=== PATIENT | male | born 1990 | race Caucasian/White ===

== ENCOUNTER 2017-04-28 13:05 | Inpatient (IN) | payer MEDICAID, OTHER ==
[~2017-04-28] VITALS: Ht 165.1 cm; Wt 65.5 kg
[2017-04-28] MEDS ORDERED: CEFTRIAXONE 1 GM/50 ML (PMX) 50 ML IVPB ONE (15:00)
[2017-04-28] MEDS ORDERED: VANCOMYCIN 1 GM (PMX) 250 ML IVPB SCH (15:00)
[2017-04-28] MEDS ORDERED: SOD CHLORIDE 0.9% 1,000 ML IV ONE (15:00)
[2017-04-28 15:38] LABS: BASOPHILS % 0.3 % (0.0-2.0); EOSINOPHILS # 0.2 10^3/ul (0.0-0.5); EOSINOPHILS % 2.1 % (0.0-7.0); HEMATOCRIT 43.9 % (42.0-52.0); HEMOGLOBIN 14.7 g/dl (14.0-18.0); LYMPHOCYTES # 1.3 10^3/ul (0.8-2.9); LYMPHOCYTES % 12.4 % (15.0-51.0); MEAN CORPUSCULAR HEMOGLOBIN 30.6 pg (29.0-33.0); MEAN CORPUSCULAR HGB CONC 33.5 g/dl (32.0-37.0); MEAN CORPUSCULAR VOLUME 91.5 fl (82.0-101.0); MONOCYTE # 0.6 10^3/ul (0.3-0.9); MONOCYTES % 5.4 % (0.0-11.0); NEUTROPHIL # 8.5 10^3/ul (1.6-7.5); NEUTROPHILS % 79.6 % (39.0-77.0); PLATELET COUNT 246 10^3/UL (140-415); RED CELL DISTRIBUTION WIDTH 12.8 % (11.5-14.5); WHITE BLOOD COUNT 10.6 10^3/ul (4.8-10.8)
[2017-04-28 15:55] LABS: CREATININE 0.81 mg/dl (0.61-1.24); POTASSIUM 3.3 mmol/L (3.5-5.1)
[2017-04-28] MEDS ORDERED: HYDROCODONE/APAP (5/325) TAB PO ONE (16:30)
[2017-04-28] MEDS ORDERED: POTASSIUM CHLORIDE (SR) 20 MEQ TAB PO STA (17:16)
--- NOTE | 2017-04-28 17:58 | ERD ---
ER Documentation Chief Complaint Chief Complaint FELT SOMETHING BITE HIM YESTERDAY MORNING NOW HAS R SIDE OF FACE SWELLING HPI Patient is a 27-year-old male who presents with gradual onset, constant, progressive pain and swelling to his right face for 3 days. He reports that he had a pimple on his face 3 days ago, and over time his cheek started swelling and became increasingly painful. He reports fever today only. He reports no drainage from his face. He does report having pain and poor dentition in his molars. He denies vomiting. ROS All systems reviewed and are negative except as per history of present illness. Medications Home Meds No Active Prescriptions or Reported Meds Allergies Allergies: Coded Allergies: No Known Allergy (Unverified , 04/28/17) PMhx/Soc Past medical history: None Past surgical history: None Social history: Smokes methamphetamine, denies tobacco or alcohol Medical and Surgical Hx: pt denies Medical Hx, pt denies Surgical Hx Hx Alcohol Use: No Hx Substance Use: No Hx Tobacco Use: No Smoking Status: Never smoker FmHx Family History: No coronary disease, No diabetes Physical Exam Vitals Vital Signs Date Time Temp Pulse Resp B/P Pulse Ox O2 Delivery O2 Flow Rate FiO2 04/28/17 19:38 110 17 134/61 100 Room Air 04/28/17 18:08 100.5 105 17 135/90 100 Room Air 04/28/17 17:09 107 30 150/95 100 Room Air 04/28/17 13:16 100.2 106 18 136/90 98 Physical Exam Const: Alert, appears mildly uncomfortable Head: Atraumatic Eyes: Normal Conjunctiva, No pallor, no icterus ENT: Right cheek with small pustule and extensive erythema and induration. Tender to palpation. No bulla, no signs of necrosis. Poor dentition with caries to upper and lower right-sided molars. No trismus. No sub-lingual or submandibular induration Neck: Full range of motion. No adenopathy Resp: Clear to auscultation bilaterally, No wheezes, no rales Cardio: Mild tachycardia, regular rhythm, no murmurs Abd: Soft, non tender, non distended. Skin: No petechiae or rashes Back: No midline or flank tenderness Ext: No cyanosis, or edema Neur: Awake and alert, Cranial nerves II through XII intact bilaterally, strength and sensation full in 4 extremities. Psych: Normal Mood and Affect Result Diagram: 04/28/17 1520 04/28/17 1520 Results 24 hrs Laboratory Tests Test 04/28/17 15:20 White Blood Count 10.610^3/ul Red Blood Count 4.8010^6/ul Hemoglobin 14.7g/dl Hematocrit 43.9% Mean Corpuscular Volume 91.5fl Mean Corpuscular Hemoglobin 30.6pg Mean Corpuscular Hemoglobin Concent 33.5g/dl Red Cell Distribution Width 12.8% Platelet Count 94025^3/UL Mean Platelet Volume 10.0fl Neutrophils % 79.6% Lymphocytes % 12.4% Monocytes % 5.4% Eosinophils % 2.1% Basophils % 0.3% Nucleated Red Blood Cells % 0.0/100WBC Neutrophils # 8.510^3/ul Lymphocytes # 1.310^3/ul Monocytes # 0.610^3/ul Eosinophils # 0.210^3/ul Basophils # 0.010^3/ul Nucleated Red Blood Cells # 0.010^3/ul Sodium Level 138mmol/L Potassium Level 3.3mmol/L Chloride Level 97mmol/L Carbon Dioxide Level 30mmol/L Anion Gap 14 Blood Urea Nitrogen 17mg/dl Creatinine 0.81mg/dl Glucose Level 108mg/dl Calcium Level 9.0mg/dl Current Medications Medications (Trade) Dose Ordered Sig/Mary Route PRN Reason Start Time Stop Time Status Last Admin Dose Admin Vancomycin HCl 250 ml @ 125 mls/hr ONCE IVPB 04/28/17 15:00 04/28/17 16:59 DC 04/28/17 16:02 Ceftriaxone Sodium 50 ml @ 100 mls/hr ONCE ONCE IVPB 04/28/17 15:00 04/28/17 15:29 DC 04/28/17 15:27 Sodium Chloride (NS) 1,000 ml @ 1,000 mls/hr Q1H ONCE IV 04/28/17 15:00 04/28/17 15:59 DC 04/28/17 15:27 Acetaminophen/ Hydrocodone Bitart ([place] (5/325)) 1 tab ONCE ONCE PO 04/28/17 16:30 04/28/17 16:31 DC 04/28/17 16:21 Potassium Chloride (Klor-Con 20) 20 meq ONCE STAT PO 04/28/17 17:16 04/28/17 17:24 DC 04/28/17 19:25 Acetaminophen (Tylenol Tab) 650 mg ONCE ONCE PO 04/28/17 19:30 04/28/17 19:31 DC 04/28/17 19:24 Morphine Sulfate (morphine) 4 mg ONCE STAT IV 04/28/17 19:01 04/28/17 19:04 DC 04/28/17 19:25 Ondansetron HCl (Zofran Inj) 4 mg ONCE STAT IV 04/28/17 19:01 04/28/17 19:04 DC 04/28/17 19:24 Ondansetron HCl (Zofran Inj) 4 mg BRIDGE ORDER PRN IV NAUSEA AND/OR VOMITING 04/28/17 19:30 04/29/17 19:29 Acetaminophen (Tylenol Tab) 650 mg ER BRIDGE PRN PO MILD PAIN/FEVER 04/28/17 19:30 04/28/17 20:14 DC IV Flush (NS 3 ml) 3 ml PER PROTOCOL IV 04/28/17 20:00 Ondansetron HCl (Zofran Tab) 4 mg Q6H PRN PO NAUSEA AND/OR VOMITING 04/28/17 20:00 Acetaminophen (Tylenol Tab) 650 mg Q6H PRN PO PAIN LEVEL 1-3 OR FEVER 04/28/17 20:00 Acetaminophen/ Hydrocodone Bitart ([place] (5/325)) 1 tab Q6H PRN PO MODERATE PAIN LEVEL 4-6 04/28/17 20:00 Acetaminophen/ Hydrocodone Bitart ([place] (5/325)) 2 tab Q6H PRN PO SEVERE PAIN LEVEL 7-10 04/28/17 20:00 Docusate Sodium (Colace) 100 mg Q12H PRN PO CONSTIPATION 04/28/17 20:00 Procedures/MDM MDM: Patient is a 27-year-old male who presents with 3 days of right facial swelling and associated fever. He has evidence of facial cellulitis on exam. I performed a bedside ultrasound and do not see a obvious or large fluid collection requiring drainage at this time. I do see some cobblestoning, and suspect that there may be phlegmon. The patient was given IV antibiotics. He has no leukocytosis. There are no signs of necrotizing soft tissue infection. There is no evidence of deep space infection or trismus. He will be admitted for further treatment with IV antibiotics. He may require ENT consult in case he does not respond appropriately or there is suspicion for developing abscess. Departure Diagnosis: Primary Impression: Facial cellulitis Additional Impressions: Hypokalemia Methamphetamine abuse Condition: AURORA Griffin MD Apr 28, 2017 17:58
[2017-04-28 18:08] VITALS: TEMP 100.5
[2017-04-28] MEDS ORDERED: morphine 4 MG/ML VIAL IV STA (19:01)
[2017-04-28] MEDS ORDERED: ONDANSETRON 4 MG INJ IV STA (19:01)
[2017-04-28] MEDS ORDERED: ACETAMINOPHEN 325 MG TAB PO PRN ×2 (19:30→20:00)
[2017-04-28] MEDS ORDERED: ACETAMINOPHEN 325 MG TAB PO ONE (19:30)
[2017-04-28] MEDS ORDERED: ONDANSETRON 4 MG INJ IV PRN (19:30)
[2017-04-28 19:38] VITALS: PULSE 110
[2017-04-28] MEDS ORDERED: NACL 0.9% 3 ML SYG IV SCH (20:00)
[2017-04-28] MEDS ORDERED: ONDANSETRON 4 MG TAB PO PRN (20:00)
[2017-04-28] MEDS ORDERED: HYDROCODONE/APAP (5/325) TAB PO PRN (20:00)
[2017-04-28] MEDS ORDERED: DOCUSATE SODIUM 100 MG CAP PO PRN (20:00)
[2017-04-28] MEDS: HYDROCODONE/APAP (5/325) TAB PO PRN (21:15)
[2017-04-28 22:10] VITALS: BP 116/70; RESP 18
[2017-04-28 22:30] VITALS: Ht 165.1 cm; Wt 65.5 kg
[2017-04-29] MEDS: CLINDAMYCIN 600 MG/D5W (PMX) 50 ML IVPB SCH ×3 (01:04→13:32)
[2017-04-29 02:17] VITALS: BP 126/70; RESP 18
--- NOTE | 2017-04-29 05:18 | HP ---
Date/Time of Note Date/Time of Note DATE: 04/29/17 TIME: 05:03 Assessment/Plan VTE Prophylaxis VTE Prophylaxis Intervention: SCD's Lines/Catheters IV Catheter Type (from [facility]): Saline Lock Assessment/Plan Chief Complaint/Hosp Course This is a 27-year-old male being admitted to the [facility] floor for: #1 right facial cellulitis: Patient does have poor dentition however the current time I do feel that the source of this infection likely is the pustule/ pimple that he picked at. He initially received vancomycin and ceftriaxone in the ED. At the current time will start clindamycin 600 mg IV every 8 hours. Patient denies any problems with swallowing or drinking. Will continue to monitor for improvement in his type cellulitis. If his cellulitis is not improving in the next 24-48 hours would likely will need to change antibiotics and/or consider obtaining CT scan. Pain meds as indicated. #2 methamphetamine use: Patient has a history of methamphetamine use with the most recent being yesterday. At the current time will provide Ativan 1 mg as needed for anxiety/agitation/Withdrawal. Encourage cessation. Check urine drug screen. #3 DVT GI prophylaxis: SCDs, no GI prophylaxis indicated Further treatment strategy will be implemented as per the clinical course Problems: HPI/ROS Admit Date/Time Admit Date/Time Apr 28, 2017 at 19:09 Hx of Present Illness cc: facial rash This is a 27-year-old male who presents with gradual onset, constant, progressive pain and swelling to his right face for 3 days. He reports that he had a pimple on his face 3 days ago, and over time his cheek started swelling and became increasingly painful. He reports fever today only. He reports no drainage from his face. He does report having pain and poor dentition in his molars. He denies vomiting. Of note patient reports that he also smokes crystal meth and his last use was yesterday. Allergies: NKDA Medications: None ROS Const: As per HPI Eyes : No pain discharge or redness or change in visual acuity ENT: No pain, sore throat, congestion, congestion, dysphagia or discharge Respiratory: No shortness of breath, cough, sputum, wheezing, or pleuritic pain Cardiovascular: No chest pain, palpitation, PND, or edema GI : no change in appetite, abdominal pain, nausea, vomiting, diarrhea, constipation, or change in the color his stool Genitourinary: No dysuria, hematuria, flank pain , discharge or CVA tenderness Musculoskeletal: No joint pain, back pain, neck pain, restricted range of motion in neck or joints Skin: As per HPI Neuro: No headache, dizziness, syncope, seizure, focal weakness Endocrine: No polyuria, polydipsia, temperature intolerance Psych: No hallucination, depression, anxiety or suicidal ideation PMH/Family/Social Past Medical History Medical History: no pertinent history Past Surgical History Past Surgical Hx: no surgical history Family History Significant Family History: no pertinent family hx Social History Alcohol Use: none Smoking Status: Never smoker Drug Use: other (Smokes crystal meth last use was yesterday) Exam/Review of Systems Vital Signs Vitals Vital Signs Date Time Temp Pulse Resp B/P Pulse Ox O2 Delivery O2 Flow Rate FiO2 04/29/17 02:17 98.4 81 18 126/70 98 04/28/17 19:38 Room Air Intake and Output 04/28/17 04/28/17 04/29/17 15:00 23:00 07:00 Intake Total 1300 ml Balance 1300 ml Exam Exam General: Patient is well-developed well-nourished The patient is alert oriented -3 lying comfortably in bed. HEENT: Atraumatic, normocephalic. The pupils are equal, round and reactive. Extraocular motor are intact, poor dentition Neck: Supple with full range of motion. No rigidity or meningismus Chest: Nontender Lungs: Clear to auscultation bilaterally no crackles rales or wheezing Heart: Normal S1-S2, Regular rhythm and rate. No murmur, S3, or S4 Abdomen: Soft , nontender, nondistended , bowel sounds are present. No guarding no rebound tenderness , No masses or organomegaly. No costovertebral temporal angle mass Extremities: Normal to inspection, no edema no cyanosis Neurologic: Normal mental status, speech normal, cranial nerves II through XII are intact, motor and sensory are intact, no focal weakness Skin: Right cheek with small pustule and extensive erythema and induration. Tender to palpation. No bulla, no signs of necrosis. No trismus. No sub- lingual or submandibular induration Labs Result Diagram: 04/28/17 1520 04/28/17 1520 Medications Medications Current Medications Ondansetron HCl (Zofran Tab) 4 mg Q6H PRN PO NAUSEA AND/OR VOMITING; Start at 20:00 Acetaminophen (Tylenol Tab) 650 mg Q6H PRN PO PAIN LEVEL 1-3 OR FEVER; Start 04/28/17 at 20:00 Acetaminophen/ Hydrocodone Bitart ([place] (5/325)) 1 tab Q6H PRN PO MODERATE PAIN LEVEL 4-6; Start 04/28/17 at 20:00 Acetaminophen/ Hydrocodone Bitart ([place] (5/325)) 2 tab Q6H PRN PO SEVERE PAIN LEVEL 7-10 Last administered on 04/28/17 21:15; Admin Dose 2 TAB; Start 04/28 at 20:00 Docusate Sodium 100 mg 100 mg Q12H PRN PO CONSTIPATION; Start 04/28/17 at 20: 00 Clindamycin HCl/ Dextrose (Cleocin 600 Mg/ D5W (Pmx)) 50 ml @ 50 mls/hr Q8 IVPB Last administered on 04/29/17 01:04; Admin Dose 50 MLS/HR; Start 04/28/17 at 23:00 ABBEY HEWITT Apr 29, 2017 05:13 ABBEY HEWITT Apr 29, 2017 05:13
[2017-04-29] MEDS ORDERED: LORAZEPAM 2 MG INJ IV PRN (05:30)
[2017-04-29 05:58] LABS: BASOPHILS % 0.3 % (0.0-2.0); EOSINOPHILS # 0.2 10^3/ul (0.0-0.5); EOSINOPHILS % 1.9 % (0.0-7.0); HEMATOCRIT 47.1 % (42.0-52.0); HEMOGLOBIN 15.5 g/dl (14.0-18.0); LYMPHOCYTES # 1.5 10^3/ul (0.8-2.9); LYMPHOCYTES % 12.6 % (15.0-51.0); MEAN CORPUSCULAR HEMOGLOBIN 30.8 pg (29.0-33.0); MEAN CORPUSCULAR HGB CONC 32.9 g/dl (32.0-37.0); MEAN CORPUSCULAR VOLUME 93.6 fl (82.0-101.0); MEAN PLATELET VOLUME 10.4 fl (7.4-10.4); MONOCYTE # 0.7 10^3/ul (0.3-0.9); MONOCYTES % 6.2 % (0.0-11.0); NEUTROPHIL # 9.5 10^3/ul (1.6-7.5); NEUTROPHILS % 78.7 % (39.0-77.0); PLATELET COUNT 254 10^3/UL (140-415); RED BLOOD COUNT 5.03 10^6/ul (4.70-6.10); RED CELL DISTRIBUTION WIDTH 13.1 % (11.5-14.5)
[2017-04-29 06:46] LABS: ALBUMIN 3.6 g/dl (3.3-4.9); BILIRUBIN,INDIRECT 0.4 mg/dl (0-1.1); BILIRUBIN,TOTAL 0.4 mg/dl (0.2-1.3); CALCIUM 8.9 mg/dl (8.4-10.2); CHOL/HDL RATIO 2.8 RATIO; CREATININE 0.9 mg/dl (0.61-1.24); POTASSIUM 4.3 mmol/L (3.5-5.1); TOTAL PROTEIN 7.2 g/dl (6.1-8.1)
[2017-04-29 06:51] LABS: THYROID STIMULATING HORMONE 0.601 MIU/L (0.465-4.680)
[2017-04-29 07:56] VITALS: BP 123/77; RESP 18
[2017-04-29] MEDS: HYDROCODONE/APAP (5/325) TAB PO PRN ×2 (13:34→19:45)
[2017-04-29] MEDS ORDERED: SOD CHLORIDE 0.9% 100 ML ONE (13:50)
[2017-04-29] MEDS ORDERED: IOHEXOL 300MG/ML 150 ML BTL ONE (13:50)
[2017-04-29 14:00] VITALS: BP 120/77; RESP 20
--- NOTE | 2017-04-29 14:43 | RADRPT ---
PROCEDURE: CT scan maxillofacial with contrast. CLINICAL INDICATION: Facial swelling. Infection. Evaluate for abscess. TECHNIQUE: CT scan of the face was performed on the a high-resolution multidetector CT scanner wit h multiple contiguous axial images obtained through the face. 85 cc of Omnipaque-300 was administer ed intravenously. Coronal and sagittal reformatted images were obtained from the axial source images . Exam CTDI = 53.81 mGy and the DLP = 1035.93 mGy-cm. DICOM images are available. One or more of the following dose reduction techniques were used: Automated exposure control. Adjustment of the mA and/or kV according to patient size. Use of iterative reconstruction technique. COMPARISON: None available FINDINGS: Marked asymmetric soft tissue swelling of the right chain and cheek is identified. Extensive subcuta neous fatty infiltration is noted in keeping with cellulitis. Asymmetric thickening of the masticato r muscles adjacent to the right mandible suggesting myositis. Cluster of sub centimeter superficial fluid density collections are seen along the anterior aspect of the right mandible. There is no drai nable loculated fluid collection. There is no soft tissue gas. No radiopaque foreign bodies identifi ed. Right mandible is intact. There is no evidence of periodontal abscess. The facial bones are inta ct. No fracture or dislocation is seen. The orbital globes are unremarkable.The zygomatic arches a re symmetrically normal. There is mild leftward nasal septal deviation. The paranasal sinuses are c lear. IMPRESSION: 1. Marked asymmetric right-sided facial swelling with extensive subcutaneous fatty infiltration in k eeping with cellulitis. Asymmetric thickening of the enroller muscles adjacent to the right mandib le suggesting myositis. No soft tissue gas. No radiopaque foreign body. 2. Cluster of sub centimeter subcutaneous fluid density collections along the anterior right mandib le which could represent early abscess/phlegmon. No drainable deep soft tissue abscess is identified . 3. No periodontal abscess. Intact right mandible. RPTAT: BB .Meeta Chiang MD, Date Time Electronically viewed and signed by .Meeta Chiang MD, on 04/29/2017 14:43 .O/
[2017-04-29] MEDS ORDERED: VANCOMYCIN IV PER PHARMACY XX SCH (15:30)
[2017-04-29] MEDS ORDERED: VANCOMYCIN 1.25 GM in SOD CHLORIDE 0.9% 250 ML IVPB SCH (17:00)
[2017-04-29] MEDS ORDERED: LIDOCAINE 1%/EPI 30 ML INJ INJ STA (17:20)
[2017-04-29] MEDS ORDERED: PIPER-TAZO 3.375 GM IV (PMX) 50 ML IVPB SCH (18:00)
--- NOTE | 2017-04-29 19:08 | PN ---
Date/Time of Note Date/Time of Note DATE: 04/29/17 TIME: 19:06 Assessment/Plan VTE Prophylaxis VTE Prophylaxis Intervention: LMWH Lines/Catheters IV Catheter Type (from Nrs): Saline Lock Assessment/Plan Chief Complaint/Hosp Course 27 yo undomiciled male, amphetemine use d/o presenting with facial cellulitis - Vanco/zosyn for abx coverage - ENT consulted Amphetamine use d/o: - SW consulted Discharge when stable Problems: Subjective 24 Hr Interval Summary Free Text/Dictation Continued pain in face, doesn't feel he is improving CT suggestive of possible phlegmon, but no clear drainable abscess Exam/Review of Systems Vital Signs Vitals Vital Signs Date Time Temp Pulse Resp B/P Pulse Ox O2 Delivery O2 Flow Rate FiO2 04/29/17 14:00 98.0 80 20 120/77 98 04/28/17 19:38 Room Air Intake and Output 04/28/17 04/28/17 04/29/17 14:59 22:59 06:59 Intake Total 1300 ml 450 ml Balance 1300 ml 450 ml Exam Extensive swelling of R cheek surrounding small eschar, some expressible pus No internal lesion, poor dentition Results Result Diagram: 04/29/17 0448 04/29/17 0448 Results 24 hrs Laboratory Tests Test 04/29/17 04:48 White Blood Count 12.0 H Red Blood Count 5.03 Hemoglobin 15.5 Hematocrit 47.1 Mean Corpuscular Volume 93.6 Mean Corpuscular Hemoglobin 30.8 Mean Corpuscular Hemoglobin Concent 32.9 Red Cell Distribution Width 13.1 Platelet Count 254 Mean Platelet Volume 10.4 Neutrophils % 78.7 H Lymphocytes % 12.6 L Monocytes % 6.2 Eosinophils % 1.9 Basophils % 0.3 Nucleated Red Blood Cells % 0.0 Neutrophils # 9.5 H Lymphocytes # 1.5 Monocytes # 0.7 Eosinophils # 0.2 Basophils # 0.0 Nucleated Red Blood Cells # 0.0 Sodium Level 142 Potassium Level 4.3 Chloride Level 101 Carbon Dioxide Level 32 H Anion Gap 13 Blood Urea Nitrogen 9 Creatinine 0.90 Glucose Level 96 Hemoglobin A1c 5.1 Calcium Level 8.9 Total Bilirubin 0.4 Direct Bilirubin 0.00 Indirect Bilirubin 0.4 Aspartate Amino Transf (AST/SGOT) 24 Alanine Aminotransferase (ALT/SGPT) 29 Alkaline Phosphatase 109 Total Protein 7.2 Albumin 3.6 Globulin 3.60 H Albumin/Globulin Ratio 1.00 Triglycerides Level 57 Cholesterol Level 84 L LDL Cholesterol, Calculated 43 HDL Cholesterol 30 Cholesterol/HDL Ratio 2.8 Thyroid Stimulating Hormone (TSH) 0.601 Medications Medications Current Medications Ondansetron HCl (Zofran Tab) 4 mg Q6H PRN PO NAUSEA AND/OR VOMITING; Start at 20:00 Acetaminophen (Tylenol Tab) 650 mg Q6H PRN PO PAIN LEVEL 1-3 OR FEVER; Start 04/28/17 at 20:00 Acetaminophen/ Hydrocodone Bitart ([place] (5/325)) 1 tab Q6H PRN PO MODERATE PAIN LEVEL 4-6; Start 04/28/17 at 20:00 Acetaminophen/ Hydrocodone Bitart ([place] (5/325)) 2 tab Q6H PRN PO SEVERE PAIN LEVEL 7-10 Last administered on 04/29/17t 13:34; Admin Dose 2 TAB; Start 04/28 at 20:00 Docusate Sodium (Colace) 100 mg Q12H PRN PO CONSTIPATION; Start 04/28/17 at 20 :00 Lorazepam 1 mg 1 mg Q4H PRN IV AGITATION/ANXIETY; Start 04/29/17 at 05:30 Vancomycin HCl 250 ml @ 125 mls/hr Q8H IVPB ; Start 04/30/17 at 00:00 Piperacillin Sod/ Tazobactam Sod (Zosyn 3.375gm/ 50 ml (Pmx)) 50 ml @ 100 mls/ hr Q6 IVPB ; Start 04/29/17 at 18:00 Miscellaneous Information (*Rx Drug Level Order Reminder*) VANCO TROUGH @ 1, 500 ON ... ONCE ONCE XX ; Start 04/30/17 at 15:00; Stop 04/30/17 at 15:01 Acetaminophen/ Hydrocodone Bitart ([place] (5/325)) 2 tab ONCE ONCE PO ; Start 04/29/17 at 19:30; Stop 04/29/17 at 19:31; Status AURORA HOLLIS MD Apr 29, 2017 19:08
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
[2017-04-29] MEDS ORDERED: HYDROCODONE/APAP (5/325) TAB PO ONE (19:30)
[2017-04-29 20:23] VITALS: BP 126/77; RESP 20
[2017-04-29] MEDS: PIPER-TAZO 3.375 GM IV (PMX) 50 ML IVPB SCH (21:22)
[2017-04-30] MEDS: PIPER-TAZO 3.375 GM IV (PMX) 50 ML IVPB SCH ×4 (00:15→17:35)
[2017-04-30] MEDS: VANCOMYCIN 1 GM in NS 250 ML IVPB SCH ×3 (00:16→15:49)
[2017-04-30 02:10] VITALS: BP 107/56; RESP 18
[2017-04-30] MEDS: HYDROCODONE/APAP (5/325) TAB PO PRN ×2 (06:04→21:59)
[2017-04-30 06:52] LABS: BASOPHILS % 0.3 % (0.0-2.0); EOSINOPHILS # 0.2 10^3/ul (0.0-0.5); EOSINOPHILS % 2.6 % (0.0-7.0); HEMATOCRIT 45.5 % (42.0-52.0); HEMOGLOBIN 14.8 g/dl (14.0-18.0); LYMPHOCYTES % 11.2 % (15.0-51.0); MEAN CORPUSCULAR HEMOGLOBIN 30.5 pg (29.0-33.0); MEAN CORPUSCULAR HGB CONC 32.5 g/dl (32.0-37.0); MEAN CORPUSCULAR VOLUME 93.6 fl (82.0-101.0); MONOCYTE # 0.5 10^3/ul (0.3-0.9); MONOCYTES % 5.1 % (0.0-11.0); NEUTROPHIL # 7.1 10^3/ul (1.6-7.5); NEUTROPHILS % 80.6 % (39.0-77.0); PLATELET COUNT 254 10^3/UL (140-415); RED BLOOD COUNT 4.86 10^6/ul (4.70-6.10); RED CELL DISTRIBUTION WIDTH 12.9 % (11.5-14.5); WHITE BLOOD COUNT 8.9 10^3/ul (4.8-10.8)
[2017-04-30 07:18] LABS: ALBUMIN 3.7 g/dl (3.3-4.9); ALBUMIN/GLOBULIN RATIO 1.02; BILIRUBIN,INDIRECT 0.5 mg/dl (0-1.1); BILIRUBIN,TOTAL 0.5 mg/dl (0.2-1.3); CALCIUM 9.1 mg/dl (8.4-10.2); CREATININE 0.88 mg/dl (0.61-1.24); POTASSIUM 3.8 mmol/L (3.5-5.1); TOTAL PROTEIN 7.3 g/dl (6.1-8.1)
[2017-04-30 07:43] VITALS: BP 105/56; RESP 18
--- NOTE | 2017-04-30 12:50 | CONS ---
Date/Time of Note Date/Time of Note DATE: 04/30/17 TIME: 12:44 PEDIATRIC ENT/HEAD & NECK SURGERY HOSPITAL VISIT S: Patient says he is improved, asking when he can go home. Less pain O: Afeb, VSS. Dressing changed and drain advanced and removed and suture removed. Swelling diminished (now 3x4.5 cm) with less redness and tenderness. Preliminary culture results--staph aureus, sensitivities pending. A: Responding well to current antibiotic therapy. P: Continue current therapy pending culture results. Anticipate that if continues current improvement and if cultured organism is sensitive to Clindamycin that he could be discharged home in 48 hrs on Clindamycin to be continued for another 7-10days until all swelling and tenderness resolved. I will no longer follow while in hospital, but am available if any questions or conscerns arise. Call me again any time as needed. CONNER SMITH MD Apr 30, 2017 12:50
--- NOTE | 2017-04-30 14:01 | PN ---
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 and abscess - Vanco/zosyn for abx coverage for now, culture growing Staph Aureus, await final sensitivities - Appreciate excellent care by Dr Sierra Amphetamine use d/o: - SW consulted Discharge with PO abx pending sensitivities Problems: Subjective 24 Hr Interval Summary Free Text/Dictation Abscess drained yesterday by Dr Sierra, drain removed today Patient feels much better Staph Aureus growing, awaitn sensitivities Exam/Review of Systems Vital Signs Vitals Vital Signs Date Time Temp Pulse Resp B/P Pulse Ox O2 Delivery O2 Flow Rate FiO2 04/30/17 07:43 98.0 70 18 105/56 95 04/28/17 19:38 Room Air Intake and Output 04/29/17 04/29/17 04/30/17 14:59 22:59 06:59 Intake Total 1410 ml 540 ml Balance 1410 ml 540 ml Exam Constitutional: alert, oriented, well developed Psych: nl mood/affect, no complaints Head: atraumatic, normocephalic Eyes: EOMI, PERRL, nl conjunctiva, nl lids, nl sclera ENMT: nl external ears & nose, nl lips & teeth, nl nasal mucosa & septum Neck: non-tender, supple Respiratory: clear to auscultation, normal air movement Cardiovascular: nl pulses, regular rate and rhythm Gastrointestinal: nl liver, spleen, non-tender, soft Musculoskeletal: nl extremities to inspection, nl gait and stance Extremities: normal pulses Neurological: STEAM TABLE WORKER II-XII intact, nl mental status, nl speech, nl strength Skin: nl turgor, No rash or lesions Lymph: nl lymph nodes Results Result Diagram: 04/30/1761304/30/17613 Results 24 hrs Laboratory Tests Test 04/30/17 06:14 White Blood Count 8.9 # Red Blood Count 4.86 Hemoglobin 14.8 Hematocrit 45.5 Mean Corpuscular Volume 93.6 Mean Corpuscular Hemoglobin 30.5 Mean Corpuscular Hemoglobin Concent 32.5 Red Cell Distribution Width 12.9 Platelet Count 254 Mean Platelet Volume 10.0 Neutrophils % 80.6 H Lymphocytes % 11.2 L Monocytes % 5.1 Eosinophils % 2.6 Basophils % 0.3 Nucleated Red Blood Cells % 0.0 Neutrophils # 7.1 Lymphocytes # 1.0 Monocytes # 0.5 Eosinophils # 0.2 Basophils # 0.0 Nucleated Red Blood Cells # 0.0 Sodium Level 141 Potassium Level 3.8 Chloride Level 98 Carbon Dioxide Level 34 H Anion Gap 13 Blood Urea Nitrogen 8 Creatinine 0.88 Glucose Level 91 Calcium Level 9.1 Total Bilirubin 0.5 Direct Bilirubin 0.00 Indirect Bilirubin 0.5 Aspartate Amino Transf (AST/SGOT) 88 #H Alanine Aminotransferase (ALT/SGPT) 71 H Alkaline Phosphatase 112 Total Protein 7.3 Albumin 3.7 Globulin 3.60 H Albumin/Globulin Ratio 1.02 Medications Medications Current Medications Ondansetron HCl (Zofran Tab) 4 mg Q6H PRN PO NAUSEA AND/OR VOMITING; Start at 20:00 Acetaminophen (Tylenol Tab) 650 mg Q6H PRN PO PAIN LEVEL 1-3 OR FEVER; Start 04/28/17 at 20:00 Acetaminophen/ Hydrocodone Bitart ([place] (5/325)) 1 tab Q6H PRN PO MODERATE PAIN LEVEL 4-6 Last administered on 04/30/17 12:32; Admin Dose 1 TAB; Start 04/28/17 at 20:00 Acetaminophen/ Hydrocodone Bitart ([place] (5/325)) 2 tab Q6H PRN PO SEVERE PAIN LEVEL 7-10 Last administered on 04/30/17 06:04; Admin Dose 2 TAB; Start 04/28 at 20:00 Docusate Sodium (Colace) 100 mg Q12H PRN PO CONSTIPATION; Start 04/28/17 at 20 :00 Lorazepam 1 mg 1 mg Q4H PRN IV AGITATION/ANXIETY; Start 04/29/17 at 05:30 Vancomycin HCl 250 ml @ 125 mls/hr Q8H IVPB Last administered on 04/30/17 08 :48; Admin Dose 125 MLS/HR; Start 04/30/17 at 00:00 Piperacillin Sod/ Tazobactam Sod (Zosyn 3.375gm/ 50 ml (Pmx)) 50 ml @ 100 mls/ hr Q6 IVPB Last administered on 04/30/17t 11:18; Admin Dose 100 MLS/HR; Start 04/29/17 at 18:00 Miscellaneous Information (*Rx Drug Level Order Reminder*) VANCO TROUGH @ 1, 500 ON ... ONCE ONCE XX ; Start 04/30/17 at 15:00; Stop 04/30/17 at 15:01 AURORA ROLLE MD Apr 30, 2017 14:01
[2017-04-30 14:26] VITALS: BP 96/54; RESP 20
[2017-04-30 20:17] VITALS: BP 119/58; RESP 19
[2017-05-01] MEDS: VANCOMYCIN 1 GM in NS 250 ML IVPB SCH ×2 (00:35→08:02)
[2017-05-01] MEDS: PIPER-TAZO 3.375 GM IV (PMX) 50 ML IVPB SCH ×2 (00:35→05:58)
[2017-05-01 02:17] VITALS: BP 110/59; RESP 18
[2017-05-01 08:00] VITALS: BP 131/90; RESP 17
[2017-05-01] MEDS ORDERED: BACITRACIN 0.9 GM OINT TOP SCH (09:00)
[2017-05-01] MEDS ORDERED: HYDROGEN PEROXIDE 118 ML TOP SCH (09:00)
[2017-05-01] MEDS ORDERED: SULF1TAB31 PO (09:42)
--- NOTE | 2017-05-01 09:43 | PDOCDIS ---
Discharge Instructions DIAGNOSIS Discharge Diagnosis Abscess CONDITION Patient Condition: Good HOME CARE INSTRUCTIONS: Special Diet: regular diet FOLLOW UP/APPOINTMENTS Follow-up Plan Take antibiotics as prescribed Return to the hospital for any concerning symptoms AURORA ROLLE MD May 01, 2017 09:43
== END 2017-05-01 10:25 | disposition home or self-care (01) | DRG 603 ==
LOC: FTE 13:05 → PP2 19:09
PROVIDERS: ADMIT Internal Medicine; ATTEND Internal Medicine
PROC: 0H91X0Z Drainage of Face Skin with Drainage Device, External Approach (ICD-10-PCS; principal; 2017-04-29)
DX: L03.211 Cellulitis of face (principal); F15.10 Other stimulant abuse, uncomplicated; L02.01 Cutaneous abscess of face; E87.6 Hypokalemia; K02.9 Dental caries, unspecified; B95.61 Methicillin susceptible Staphylococcus aureus infection as the cause of diseases classified elsewhere
CPT/HCPCS: 36415; 70486; 80048; 80053; 80061; 80202; 83036; 84443; 85025; 87070; 96374; 96375; J0696; J2270; J2405; J2543; J3370; J7050; Q9967

== ENCOUNTER 2018-08-23 03:54 | Emergency (ER) | payer MEDICAID, OTHER ==
[~2018-08-23] VITALS: Ht 162.6 cm; Wt 65.4 kg
[~2018-08-23 03:54] MED LIST: SULF1TAB31 PO
[2018-08-23 04:04] VITALS: BP 129/89; PULSE 88; RESP 18; Ht 162.6 cm; Wt 65.4 kg
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
[2018-08-23] MEDS ORDERED: HYDROCODONE/APAP (10/325) TAB PO ONE (05:00)
[2018-08-23] MEDS ORDERED: IBUP800T48 PO (06:37)
== END 2018-08-23 07:13 | disposition home or self-care (01) ==
LOC: FTE 03:54
DX: S50.12XA Contusion of left forearm, initial encounter (principal); S63.502A Unspecified sprain of left wrist, initial encounter; F17.210 Nicotine dependence, cigarettes, uncomplicated; V21.4XXA Motorcycle driver injured in collision with pedal cycle in traffic accident, initial encounter
CPT/HCPCS: 29125; 73090; 73110; Z7502; Z7610